=== PATIENT | female | born 1940 | race Caucasian/White ===

== ENCOUNTER → 2024-07-02 | Outpatient (CLI) | payer OTHER, SELFPAY ==
[2024-07-02 12:00] LABS: Collection Type, Urine Clean Catch
[2024-07-02 12:23] LABS: Basophils % (Auto) 1 % (0-2.5); Eosinophils # (Auto) 0.2 Thou/mm3 (0.0-0.5); Eosinophils % (Auto) 4 % (0-10); Hematocrit 40.4 % (36.0-46.0); Hemoglobin 13.2 g/dL (12.0-16.0); Immature Granulocytes % (Auto) 1 % (0-0); Immature Granulocytes Auto 0.03 Thou/mm3 (0.00-0.00); Lymphocytes # (Auto) 1.6 Thou/mm3 (1.0-4.8); Lymphocytes % (Auto) 26 % (10-50); Mean Corpuscular HGB Conc 32.7 g/dl (31.0-37.0); Mean Corpuscular Hemoglobin 31.4 pg (25.0-35.0); Mean Corpuscular Volume 96 fL (80-100); Monocytes # (Auto) 0.5 Thou/mm3 (0.0-0.8); Monocytes % (Auto) 7 % (0-12); Neutrophils % (Auto) 63 % (37-80); Nucleated Red Blood Cell % 0 /100 WBC (0); Platelet Count 202 Thou/mm3 (140-440); RDW Standard Deviation 45.7 fL (36.4-46.3); Red Blood Count 4.21 Miln/mm3 (4.00-5.20); White Blood Count 6.4 Thou/mm3 (3.6-11.0)
[2024-07-02 12:37] LABS: Glucose Estimated Average 103 mg/dL (80-131); Hemoglobin A1C 5.2 % Hgb (4.8-6.0)
[2024-07-02 12:41] LABS: Bacteria,Urine 4+; Bilirubin,Urine Negative (Negative); Blood,Urine Negative (Negative); Clarity,Urine Clear (Clear/Hazy); Color,Urine Lt-Yellow (Lt Yel-Yel); Glucose, Urine Negative (Negative); Ketones,Urine Negative (Negative); Leukocyte Esterase,Urine Positive (Negative); Nitrite,Urine Negative (Negative); PH,Urine 5.5 (5.0-7.0); Protein,Urine Negative (Neg - Trace); RBC,Urine 1 /hpf (0-3); Specific Gravity,Urine 1.017 (1.001-1.035); Squamous Epithelial Cell,Urine 1 /hpf (0-5); Urobilinogen,Urine Negative mg/dL (0.0-1.0); WBC,Urine 39 /hpf (0-5)
[2024-07-02 12:42] LABS: Culture Indicated,Urine Yes
[2024-07-02 12:47] LABS: Alanine Aminotransferase 12 U/L (10-49); Albumin, Serum 4.2 gm/dL (3.4-4.8); Albumin/Globulin Ratio 1.4 (1.2-2.2); Alkaline Phosphatase 88 U/L (46-116); Anion Gap 7 (7-16); Aspartate Amino Transferase 19 U/L (0-34); BUN/Creatinine Ratio 16 Ratio (12-20); Bilirubin,Total 0.8 mg/dL (0.3-1.2); Blood Urea Nitrogen 14 mg/dL (9-23); Calcium 9.9 mg/dL (8.3-10.6); Calcium (Corrected) 9.9 mg/dL (8.5-10.1); Carbon Dioxide 28.6 mMol/L (20.0-31.0); Cardiac Risk Estimate 5.3 RATIO (3.7-5.6); Chloride 105 mMol/L (98-107); Cholesterol 230 mg/dL (132-200); Creatinine (Component) 0.9 mg/dL (0.6-1.3); Free T4 (Free Thyroxine) 0.92 ng/dL (0.89-1.76); Globulin 3.1 gm/dL (2.3-3.5); Glucose 102 mg/dL (74-106); HDL Cholesterol 43 mg/dL (40-60); LDL Cholesterol,Calculated 150 mg/dL (0-130); Osmolality,Calculated 281 (275-295); Potassium 4.2 mMol/L (3.4-5.1); Sodium 141 mMol/L (136-145); Total Protein 7.3 gm/dL (5.7-8.2); Triglycerides 187 mg/dL (30-150); eGFR > 60 See Note
[2024-07-08 06:55] LABS: T3,Total* 107 ng/dL (76-181)
== END | disposition home or self-care (01) ==
LOC: COPL 11:03
PROVIDERS: PCP Family Medicine; Referring Provider Nurse Practitioner Family; Visit Provider Nurse Practitioner Family
DX: Z00.00 Encounter for general adult medical examination without abnormal findings (principal); E03.9 Hypothyroidism, unspecified
CPT/HCPCS: 36415; 80053; 80061; 81001; 83036; 84439; 84443; 84480; 85025; 87077; 87086; 87186

== ENCOUNTER → 2024-10-14 | Outpatient (CLI) | payer OTHER, SELFPAY ==
[2024-10-14 14:28] LABS: Basophils % (Auto) 1 % (0-2.5); Eosinophils # (Auto) 0.2 Thou/mm3 (0.0-0.5); Eosinophils % (Auto) 3 % (0-10); Hematocrit 39.8 % (36.0-46.0); Hemoglobin 13.3 g/dL (12.0-16.0); Immature Granulocytes % (Auto) 0 % (0-0); Immature Granulocytes Auto 0.02 Thou/mm3 (0.00-0.00); Lymphocytes # (Auto) 1.9 Thou/mm3 (1.0-4.8); Lymphocytes % (Auto) 33 % (10-50); Mean Corpuscular HGB Conc 33.4 g/dl (31.0-37.0); Mean Corpuscular Volume 96 fL (80-100); Monocytes # (Auto) 0.5 Thou/mm3 (0.0-0.8); Monocytes % (Auto) 9 % (0-12); Neutrophils # (Auto) 3.2 Thou/mm3 (1.8-7.7); Neutrophils % (Auto) 54 % (37-80); Nucleated Red Blood Cell % 0 /100 WBC (0); Platelet Count 177 Thou/mm3 (140-440); RDW Standard Deviation 48.1 fL (36.4-46.3); Red Blood Count 4.16 Miln/mm3 (4.00-5.20); White Blood Count 5.8 Thou/mm3 (3.6-11.0)
[2024-10-14 14:32] LABS: Glucose Estimated Average 103 mg/dL (80-131); Hemoglobin A1C 5.2 % Hgb (4.8-6.0)
[2024-10-14 14:44] LABS: Alanine Aminotransferase < 7 U/L (10-49); Albumin, Serum 4.2 gm/dL (3.4-4.8); Albumin/Globulin Ratio 1.4 (1.2-2.2); Alkaline Phosphatase 72 U/L (46-116); Anion Gap 4 (7-16); Aspartate Amino Transferase 17 U/L (0-34); BUN/Creatinine Ratio 8 Ratio (12-20); Bilirubin,Total 1.1 mg/dL (0.3-1.2); Blood Urea Nitrogen 10 mg/dL (9-23); Calcium 9.9 mg/dL (8.3-10.6); Calcium (Corrected) 9.9 mg/dL (8.5-10.1); Carbon Dioxide 28.1 mMol/L (20.0-31.0); Cardiac Risk Estimate 4.8 RATIO (3.7-5.6); Chloride 110 mMol/L (98-107); Cholesterol 179 mg/dL (132-200); Creatinine (Component) 1.2 mg/dL (0.6-1.3); Glucose 105 mg/dL (74-106); HDL Cholesterol 37 mg/dL (40-60); LDL Cholesterol,Calculated 115 mg/dL (0-130); Osmolality,Calculated 282 (275-295); Potassium 3.8 mMol/L (3.4-5.1); Sodium 142 mMol/L (136-145); Thyroid Stimulating Hormone 5.15 uIU/mL (0.55-4.78); Total Protein 7.2 gm/dL (5.7-8.2); Triglycerides 134 mg/dL (30-150); eGFR 45 See Note
[2024-10-14 17:12] LABS: Collection Type, Urine Clean Catch; RBC,Urine 0 /hpf (0-3)
[2024-10-14 17:55] LABS: Amorphous Crystals,Urine Present (Absent); Bacteria,Urine 3+; Bilirubin,Urine Negative (Negative); Blood,Urine Negative (Negative); Color,Urine Orange (Lt Yel-Yel); Glucose, Urine Negative (Negative); Ketones,Urine Negative (Negative); Leukocyte Esterase,Urine Positive (Negative); Nitrite,Urine Negative (Negative); PH,Urine 5.5 (5.0-7.0); Protein,Urine Trace (Neg - Trace); Specific Gravity,Urine 1.029 (1.001-1.035); Squamous Epithelial Cell,Urine 6 /hpf (0-5); WBC,Urine 13 /hpf (0-5)
[2024-10-14 18:04] LABS: Clarity,Urine Turbid (Clear/Hazy); Culture Indicated,Urine Yes
== END | disposition home or self-care (01) ==
LOC: COPL 13:35
PROVIDERS: PCP Physician Assistant; Referring Provider Physician Assistant; Visit Provider Physician Assistant
DX: R60.9 Edema, unspecified (principal)
CPT/HCPCS: 36415; 80053; 80061; 81001; 83036; 84443; 85025; 87077; 87086; 87186

== ENCOUNTER 2024-10-27 12:19 | Inpatient (IN) | payer OTHER, MEDICARE, SELFPAY ==
[2024-10-27] VITALS (8 sets, daily range): BP systolic 120–170; BP diastolic 57–87; PULSE 49–79; RESP 15–99; TEMP 36.2–36.9; O2SAT 90–99; BMI 32.5; BMI 31.6
--- NOTE | 2024-10-27 13:04 | XR_ITS ---
Examination: Abdomen AP single view Technique: AP portable supine abdomen, single view Exam date and time: October 27, 2024, 1311 hrs. Indications: Constipation weakness this week Findings: Moderately air distended colon. Significant air distended small bowel loops No free air Moderate narrowing hip joints Impression: Significant air distended small bowel loops, differential would include early small bowel obstruction
--- NOTE | 2024-10-27 13:04 | XR_ITS ---
Examination: PA lateral chest 2 views Technique: Upright PA lateral chest 2 views. Date and time: October 27, 2024, 1312 hrs. Comparison August 13, 2014. Indications: Hypoxia today Findings: Mild enlargement left ventricle. Mild vascular congestion. Mild opacity in the lingular segment obscuring detail left cardiac contour Moderate osteopenia Impression: Suspicious for early pneumonia lingular segment left upper lobe
--- NOTE | 2024-10-27 13:05 | PD.EDRME ---
Rapid Medical Screening Exam RME Arrival date/time: 10/27/24 12:19 This is an 83 year old female with complaints of poor appetite, constipation, weakness, and on assessment pt had low sats in triage. I have greeted and performed a focused initial assessment of this patient. Initial appropriate labs ordered at this time. A comprehensive ED assessment and evaluation of the patient and analysis of all test and completion of medical decision making process will be conducted by additional ED provider. Chief Complaint: Abdominal Pain Time Seen by Provider: 10/27/24 12:38 Vital signs: Vital Signs Temperature 97.5 F 10/27/24 12:50 Pulse Rate 75 10/27/24 12:50 Respiratory Rate 17 10/27/24 12:50 Blood Pressure 170/81 H 10/27/24 12:50 Pulse Oximetry (%) 90 L 10/27/24 12:50 Oxygen Delivery Method Room Air 10/27/24 12:50
--- NOTE | 2024-10-27 13:33 | EKG_ITS ---
[facility] Test Date: 2024-10-27 Pat Name: NICHOLE JUAN Department: Room: - Gender: Female Field Rep: : 1940 Requested By: Nabila Carroll Order Number: [id number] Reading MD: Nabila Carroll Measurements Intervals Debary Rate: 49 P: 33 SC: 275 QRS: -34 QRSD: 106 T: -7 QT: 467 QTc: 423 Interpretive Statements SINUS BRADYCARDIA WITH FIRST DEGREE AV BLOCK LEFT AXIS DEVIATION [QRS AXIS < -30] LOW QRS VOLTAGE IN PRECORDIAL LEADS [QRS DEFLECTION < 1.0 mV IN CHEST LEADS] MINIMAL VOLTAGE CRITERIA FOR LVH, CONSIDER NORMAL VARIANT [MEETS CRITERIA IN ONE OF: R(aVL), S(V1), R(V5), R(V5/V6)+S(V1)] POSSIBLE ANTERIOR MYOCARDIAL INFARCTION , PROBABLY OLD [30 ms Q WAVE IN V3/V4, OR R < 0.2 mV IN V4] Compared to ECG 09/18/2023 09:57:24 Left-axis deviation now present Low QRS voltage now present Myocardial infarct finding now present Left anterior fascicular block no longer present /store/S0/[id number]/ecg/[id number].pdf
[2024-10-27 14:02] LABS: Basophils # (Auto) 0.0 Thou/mm3 (0.0-0.2); Basophils % (Auto) 1 % (0-2.5); Eosinophils # (Auto) 0.0 Thou/mm3 (0.0-0.5); Eosinophils % (Auto) 1 % (0-10); Hematocrit 38.8 % (36.0-46.0); Hemoglobin 13.6 g/dL (12.0-16.0); Immature Granulocytes Auto 0.07 Thou/mm3 (0.00-0.00); Lymphocytes # (Auto) 1.7 Thou/mm3 (1.0-4.8); Lymphocytes % (Auto) 22 % (10-50); Mean Corpuscular HGB Conc 35.1 g/dl (31.0-37.0); Mean Corpuscular Hemoglobin 32.2 pg (25.0-35.0); Mean Corpuscular Volume 92 fL (80-100); Monocytes # (Auto) 0.7 Thou/mm3 (0.0-0.8); Monocytes % (Auto) 9 % (0-12); Neutrophils # (Auto) 5.3 Thou/mm3 (1.8-7.7); Neutrophils % (Auto) 67 % (37-80); Nucleated Red Blood Cell # 0.00 Thou/mm3 (0.00-0.00); Nucleated Red Blood Cell % 0 /100 WBC (0); Platelet Count 199 Thou/mm3 (140-440); RDW Standard Deviation 46.2 fL (36.4-46.3); Red Blood Count 4.23 Miln/mm3 (4.00-5.20); White Blood Count 7.9 Thou/mm3 (3.6-11.0)
--- NOTE | 2024-10-27 14:04 | XR_ITS ---
Examination: CT abdomen with intravenous contrast CT pelvis with intravenous contrast 2-D coronal reconstructions 2-D sagittal reconstructions Date and time of exam:25, 1533 hrs. Indications: Generalized abdominal pain and distention beginning 3 days ago.. CTDI: vol (mGy) 11.8. DLP: (mGycm) 258. Technique: Multiple axial sections of the abdomen and pelvis have been obtained. 64 slice high-resolution scanner used. 3 mm axial sections have been obtained, post intravenous injection 60 cc [id number]. 2-D sagittal, coronal reconstructions obtained. Low dose protocols were performed. One or more of the following dose reduction techniques were used; automated exposure control, adjustment of the mA and/or KV according to patient size, use of iterative reconstruction technique. Findings: Fatty infiltration throughout the liver. 15 mm liver cyst. Gallbladder not visualized No pancreatic mass. No hydronephrosis renal or ureteral calculi. Aorta normal size. Significantly fluid and air distended colon large amounts of air and stool in the rectum Multiple small bowel loops are fluid distended No pericecal inflammatory change No diverticulitis Urinary bladder contracted around a Clifton catheter. Prominent rectal wall thickening No pelvic mass Severe osteopenia Impression: Severe colonic ileus Fluid distended small bowel loops, differential would include early small bowel obstruction, consider Gastrografin small bowel series follow-up Prominent rectal wall thickening, differential would include proctitis, rectal cancer not excluded, recommend direct inspection
[2024-10-27 14:06] LABS: B-Type Natriuretic Peptide 23 pg/mL (0-100)
[2024-10-27 14:19] LABS: Alanine Aminotransferase < 7 U/L (10-49); Albumin, Serum 4.1 gm/dL (3.4-4.8); Albumin/Globulin Ratio 1.4 (1.2-2.2); Alkaline Phosphatase 66 U/L (46-116); Anion Gap 11 (7-16); Aspartate Amino Transferase 16 U/L (0-34); BUN/Creatinine Ratio 14 Ratio (12-20); Bilirubin,Total 1.3 mg/dL (0.3-1.2); Blood Urea Nitrogen 17 mg/dL (9-23); Calcium 9.7 mg/dL (8.3-10.6); Calcium (Corrected) 9.7 mg/dL (8.5-10.1); Carbon Dioxide 27.4 mMol/L (20.0-31.0); Chloride 100 mMol/L (98-107); Creatinine (Component) 1.2 mg/dL (0.6-1.3); Estimated Creatinine Clearance 35.0 mL/min (>60); Globulin 3.0 gm/dL (2.3-3.5); Glucose 117 mg/dL (74-106); Osmolality,Calculated 278 (275-295); Potassium 3.7 mMol/L (3.4-5.1); Sodium 138 mMol/L (136-145); Total Protein 7.1 gm/dL (5.7-8.2); eGFR 45 See Note
[2024-10-27 14:25] LABS: Lactate (Lactic Acid) 1.6 mMol/L (0.4-2.0)
[2024-10-27] MEDS: FUROSEMIDE INJ 10 MG/ML 4ML VIAL 40 MG IVP (15:10)
[2024-10-27 15:16] LABS: Collection Type, Urine Voided; RBC,Urine 0 /hpf (0-3)
[2024-10-27 15:21] LABS: Bacteria,Urine Rare; Bilirubin,Urine Negative (Negative); Blood,Urine Negative (Negative); Clarity,Urine Turbid (Clear/Hazy); Color,Urine Yellow (Lt Yel-Yel); Glucose, Urine Negative (Negative); Ketones,Urine Trace (Negative); Leukocyte Esterase,Urine Negative (Negative); Nitrite,Urine Positive (Negative); PH,Urine 6.0 (5.0-7.0); Protein,Urine Trace (Neg - Trace); Specific Gravity,Urine 1.030 (1.001-1.035); Squamous Epithelial Cell,Urine 5 /hpf (0-5); Urobilinogen,Urine 2.0 mg/dL (0.0-1.0); WBC,Urine 1 /hpf (0-5)
[2024-10-27 15:47] LABS: Culture Indicated,Urine Yes
--- NOTE | 2024-10-27 16:45 | PD.EDABDPN ---
ED Abdominal Pain RME/HPI General Chief Complaint: Abdominal Pain Stated complaint: VOMITING AND FEELS WEAK, HX OF BOWEL BLOCKAGE Time seen by provider: 10/27/24 12:38 Arrival date/time: 10/27/24 12:19 Limitations: no limitations RME / HPI RME / HPI narrative: 83-year-old female who is here to have multiple complaints. She states she has had some mild nausea and vomiting at home. Has no vomiting at this time. Denies any fevers or chills. She did have a bowel movement this morning. She has no urinary complaints. While the patient was being triaged, she was found to have saturations at 90%. She is not oxygen dependent at home. Has no history of COPD or asthma. She does endorse generalized weakness with shortness of breath. She has increased lower leg edema without history of CHF. Related Data Home Medications ?Medication ?Instructions ?Recorded ?Confirmed Restful Legs 1 tab PO QDAY 04/25/19 12/07/20 acetaminophen 325 mg tablet 325 mg PO Q6H PRN Pain 04/25/19 12/07/20 (Tylenol) levothyroxine 50 mcg tablet 50 mcg PO QDAY 04/25/19 12/07/20 estradiol 0.01% (0.1 mg/gram) 2 g vaginal DIRECTED 10/23/20 12/07/20 vaginal cream (Estrace) oxybutynin chloride 10 mg 10 mg PO QDAY 10/23/20 12/07/20 tablet,extended release 24 hr Allergies Allergy/AdvReac Type Severity Reaction Status Date / Time codeine Allergy Mild RASH/HIVES Verified 10/27/24 12:21 Sulfa (Sulfonamide Allergy Mild RASH/HIVES Verified 10/27/24 12:21 Antibiotics) prednisone Allergy Fainting Verified 10/27/24 12:21 Review of Systems Review of Systems Systems Reviewed: All systems reviewed, normal except as documented ED Exam General Limitations: Present no limitations General appearance: Present alert and in no apparent distress Head Head exam: Present atraumatic Eye Eye exam: Present normal appearance, PERRL and EOMI ENT ENT exam: Present normal exam, normal oropharynx and mucous membranes moist Neck Neck exam: Present normal inspection, full ROM and trachea midline Chest Chest inspection: Present normal inspection and symmetric chest wall rise Respiratory Respiratory exam: Present other (No respiratory distress or tachypnea. Mild crackles noted at the left base); Absent respiratory distress Cardiovascular Cardiovascular exam: Present regular rate, normal rhythm and normal heart sounds Abdominal Exam Abdominal exam: Present distention and tenderness; Absent guarding or rebound Extremities Exam Extremities exam: Present normal inspection and full ROM Back Exam Back exam: Present normal inspection and full ROM Neurological Exam Neurological exam: Present alert and oriented X3 Psychiatric Psychiatric exam: Present normal affect and normal mood Skin Skin exam: Present warm, dry, intact and normal color Course Quality Measures none Orders Category Date Time Status COVID-19 Screening Questionnaire NOW Care 10/27/24 16:[address] Screening NOW Care 10/27/24 14:04 Active Decision to Admit X1 Care 10/27/24 16:42 Active EKG (ED ONLY) *Do not use* NOW Care 10/27/24 13:[address] abdomen pelvis w con Stat Exams 10/27/24 14:04 Completed EKG (ED Only) Stat Exams 10/27/24 13:33 Draft KUB [XR abdomen 1V] Stat Exams 10/27/24 13:04 Completed XR chest 2V Stat Exams 10/27/24 13:04 Completed BNP [B-Type Natriuretic Peptide] Stat Lab 10/27/24 13:43 Completed CBC Stat Lab 10/27/24 13:43 Completed Comprehensive Metabolic Panel Stat Lab 10/27/24 13:43 Completed Lactic Acid [Lactate (Lactic Acid)] Stat Lab 10/27/24 14:15 Completed Urinalysis, C/S if Indicated Stat Lab 10/27/24 15:10 Completed Urine Culture Stat Lab 10/27/24 15:10 Received Furosemide Inj [Lasix Inj] Med 10/27/24 13:34 Discontinued 40 mg IVP X1 ONE cefTRIAXone [Rocephin] 2 gm Med 10/27/24 16:41 Active SODIUM CHLORIDE 0.9% (Popper) [Ns 0.9% (P)] 50 ml IV X1 Vital Signs Vital signs: Vital Signs Temperature 97.5 F 10/27/24 12:50 Pulse Rate 75 10/27/24 12:50 Respiratory Rate 17 10/27/24 12:50 Blood Pressure 170/81 H 10/27/24 12:50 Pulse Oximetry (%) 90 L 10/27/24 12:50 Oxygen Delivery Method Room Air 10/27/24 12:50 Abdominal Pain MDM MDM Narrative MDM Narrative:: 83-year-old female who is here to have multiple complaints. She states she has had some mild nausea and vomiting at home. Has no vomiting at this time. Denies any fevers or chills. She did have a bowel movement this morning. She has no urinary complaints. While the patient was being triaged, she was found to have saturations at 90%. She is not oxygen dependent at home. Has no history of COPD or asthma. She does endorse generalized weakness with shortness of breath. She has increased lower leg edema without history of CHF. On exam, patient has +4 pretibial edema. Dose of Lasix was provided. She had mild crackles in the left base. She has mild abdominal distention and mild abdominal tenderness. She has no guarding or rebound tenderness. Her CBC is unremarkable. Her metabolic panel is essentially unremarkable with a mildly elevated bilirubin at 1.3, glucose at 117, and a normal urinalysis. Radiology reports possible developing pneumonia in the left lung on chest x-ray. CT abdomen pelvis reveals severe ileus with fluid distended small loops of bowel. An order of ceftriaxone was requested. Dr. Malone with general surgery was consulted and will follow the patient. We will admit to medicine. Case discussed with attending ER physician. At approximately 1655, hospitalist was contacted for admission. Will place an NG tube. Patient data External records reviewed:: None Clinical information provided by:: patient and friend Social determinants that could affect healthcare access:: none Patient has the following chronic illnesses:: Hypothyroidism How is presenting disease/condition affected by chronic disease/condition?: uneffected by Evaluation data The following diagnostics were reviewed and interpreted by me:: lab results (No leukocytosis or anemia no metabolic derangement) and radiology exam(s) (Plain films of the chest reveal early, developing, pneumonia. CT abdomen pelvis reveals severe ileus versus possible SBO.) Lab and/or radiology exams considered but not ordered:: n/a Interpretation Summary: n/a Medications / Prescriptions Medications or Prescriptions considered but not ordered:: n/a Medication administrations:: Medication Administration History Ceftriaxone Sodium 2 gm/ (Sodium Chloride) 50 mls @ 100 mls/hr IV X1 ONE Stop: 10/27/24 17:10 Discontinued Medications Furosemide (Furosemide Inj 10 Mg/Ml 4ml Vial) 40 mg IVP X1 ONE Stop: 10/27/24 13:35 Last Admin: 10/27/24 15:10 Dose: 40 mg Documented By: TARAS See above Consultations Consultation(s) initiated? (list below): No Diagnosis Differential diagnosis abdominal pain: constipation, diverticulitis, gastroenteritis and small bowel obstruction Most likely diagnosis given after review of the tests above:: Early pneumonia, severe ileus Admission Indicated Admission indicated?: indicated Admission Request Was there a request for admission?: Yes Admission Attestation Admission request attestation: Discussed case with [] from Hospitalist service regarding admission. Discussed patients ED course, exam findings, labs, and radiology results. The Hospitalist [agrees,declines] to accept the patient for admission. Disposition Plan Disposition Plan: Admit Discharge Plan Plan Patient Disposition: Admit Acute Care w/in Hospital Patient condition on transfer: Stable Prescriptions/Referrals Prescriptions/Med Rec: No Action estradiol [Estrace] 0.01 % (0.1 mg/gram) cream 2 g vaginal DIRECTED Patient Comments: apply twice a week Rx Instructions: for 7 days oxybutynin chloride 10 mg tablet extended release 24hr 10 mg PO QDAY acetaminophen [Tylenol] 325 mg Tablet 325 mg PO Q6H PRN (Reason: Pain) levothyroxine 50 mcg Tablet 50 mcg PO QDAY Restful Legs tablet 1 tab PO QDAY Problem List Clinical Impression: Pneumonia, Hypoxia, Ileus Patient/Caregiver Discharge Instructions Print Language: Bulgarian Stand Alone Forms: Alda Award Info., Patient Portal Info Letter
[2024-10-27] MEDS: cefTRIAXone 2 GM in SODIUM CHLORIDE 0.9% (Popper) 50 ML IV (17:17)
[2024-10-27 17:37] LABS: Magnesium 1.9 mg/dL (1.6-2.6)
[2024-10-27] MEDS: HEPARIN SOD INJ 5000 UNIT/ML VIAL SC ×2 (17:58→21:33)
[2024-10-27] MEDS: AZITHROMYCIN INJ 500 MG in SODIUM CHLORIDE 0.9% 250 ML 250 ML 250 MG IV (18:00)
--- NOTE | 2024-10-27 18:05 | ECHO_ITS ---
Transthoracic Echo Report Ht (in): 62 Wt (lb): 178 Exam Location: Echo Lab Status: Inpatient Jr. Java Developer: Lucinda Workman Indications: Procedure Performed: BP: 116 / 59 HR: 62 MEASUREMENTS (Male / Female) Normal Values 2D ECHO LV Diastolic Diameter PLAX 3.4 cm 4.2 - 5.9 / 3.9 - 5.3 cm LV Systolic Diameter PLAX 2.5 cm IVS Diastolic Thickness 0.8 cm 0.6 - 1.0 / 0.6 - 0.9 cm LVPW Diastolic Thickness 0.9 cm 0.6 - 1.0 / 0.6 - 0.9 cm LV Relative Wall Thickness 0.5 LVOT Diameter 2.0 cm LA Volume Index 9.8 cm?/m? 16 - 28 cm?/m? M-MODE Aortic Root Diameter MM 2.2 cm LA Systolic Diameter MM 3.8 cm LA Ao Ratio MM 1.7 AV Cusp Separation MM 1.1 cm DOPPLER AV Peak Velocity 138.0 cm/s AV Peak Gradient 7.6 mmHg AV Mean Gradient 4.0 mmHg AV Velocity Time Integral 28.4 cm LVOT Peak Velocity 108.5 cm/s LVOT Peak Gradient 4.7 mmHg LVOT Velocity Time Integral 23.9 cm LVOT Cardiac Index 2434.2 cm?/min?m? AV Area Cont Eq vti 2.6 cm? AV Area Cont Eq pk 2.5 cm? MV Area PHT 2.2 cm? Mitral E Point Velocity 53.4 cm/s Mitral A Point Velocity 72.3 cm/s Mitral E to A Ratio 0.7 LV E' Lateral Velocity 5.8 cm/s Mitral E to LV E' Lateral Ratio 9.3 LV E' Septal Velocity 5.0 cm/s Mitral E to LV E' Septal Ratio 10.7 PV Peak Velocity 109.0 cm/s PV Peak Gradient 4.8 mmHg FINDINGS Left Ventricle Normal left ventricular size, wall thickness, systolic function with no obvious regional wall motion abnormalities. The ejection fraction is visually estimated at 55%. There is grade I diastolic dysfunction of the left ventricle (impaired relaxation pattern). Right Ventricle The right ventricle is normal in size and systolic function. Left Atrium The left atrium is normal by two-dimensional, color flow and Doppler imaging with no structural abnormalities, no thrombus formation present. Right Atrium The right atrium is normal by two-dimensional imaging, color flow and Doppler imaging with no structural abnormalities, no thrombus formation present. Atrial Septum The interatrial septum appears normal with no evidence of a shunt. Aorta The aorta is normal by two-dimensional, color flow and Doppler interrogation. Mitral Valve The mitral valve is normal by two-dimensional, color flow and Doppler interrogation. Trace mitral regurgitation. Aortic Valve Aortic valve sclerosis. Tricuspid Valve The tricuspid valve is normal by two-dimensional, color flow and Doppler interrogation. There is trace tricuspid valve regurgitation. Pulmonic Valve Mild pulmonic valve regurgitation. Vessels The pulmonary artery appears normal. The inferior vena cava pulmonary and hepatic veins appear normal. Pericardium The pericardium is normal by two-dimensional imaging. There is no significant pericardial effusion. CONCLUSIONS Indication: B/L lower ext swelling and SOB Normal LV size and function. Estimated EF 60 to 65%. No regional wall motion abnormalities. Grade 1 diastolic dysfunction. Normal RV size and function. Mild to moderate aortic valve sclerosis without stenosis. Mild MAC. Mild TR. Trace MR. Normal IVC size. No pericardial effusion. Jayesh Zaragoza (Electronically Signed) Final Date: 29 October 2024 19:41
--- NOTE | 2024-10-27 18:06 | PD.RESHP ---
Documentation for date of: 10/27/24 [facility] History of Present Illness Chief complaint: Abdominal pain, nausea, vomiting History of present illness: This patient is a 83-year-old female with past medical history of recurrent hx of chronic constipation, ?hypothyroidism presented to the ED on 10/27/2024 with chief complaint of abdominal pain, nausea, vomiting and decreased bowel movements. Patient reported that her abdominal pain started yesterday which was 5/10 diffuse crampy in nature. She had more than 3 episodes of vomiting. Vomitus consisted of food particles without blood. Denies any fever, chest pain, cough, shortness of breath, dysuria. She endorsed swelling in her both lower extremities. She had a bowel movement this morning and she always used laxative since she has been struggling with chronic constipation. Patient did not bring her medication list. Patient's ulwebbef-dh-wos was called and she stated that patient was taking Keflex for bedsore on right lower extremity back of her calf. In the ED, patient was hypertensive blood pressure 170/81, heart rate 75, respiratory 17. Saturating well on 2 L nasal cannula. Heart rate dropped to 58 bpm. Patient received ceftriaxone 2 g x 1 and Lasix 40 mg IV x 1. Labs showed white count 7.9, hemoglobin stable at 13.6. Platelet count 199. Chemistry panel showed sodium 138, potassium 3.7, chloride 100. Bicarb 27.4. BUN 17 and creatinine 1.2. GFR 45. Blood glucose 117. Lactic acid 1.6. T. bili 1.3. Magnesium 1.9. Urinalysis was turbid with trace proteins. Trace ketones. Rare bacteria. CT abdomen pelvis showed 15 mm liver cyst. Fluid and air distended colon large amount of stool and air in the rectum. Prominent rectal wall thickening. EKG showed sinus bradycardia with first-degree AV block. QTc 423. Chest x-ray suspicious for pneumonia left upper lobe. KUB showed significant air distended small bowel loops. Urine culture pending. PMH: As above PSH: Hysterectomy, cholecystectomy, appendectomy, cyst surgery, bladder tack, knee replacement Allergies: Codeine,sulfa causes hives and prednisone causes fainting SH: Denies smoking, drinking alcohol. No history of illicit drug use Home medications: Per patient's [id number] patient was taking senna, lactulose, MiraLAX, Lasix 20 mg, Keflex 500 mg 4 times daily for better Patient is admitted for further workup and management of small bowel obstruction and possible community-acquired pneumonia. Review of Systems Review of Systems Systems Reviewed: All systems reviewed, normal except as documented Exam Vital Signs Temp Pulse Resp BP Pulse Ox O2 Del Method O2 Flow Rate 97.1 F 52 L 15 143/71 H 96 Nasal Cannula 2 10/27/24 16:16 10/27/24 16:16 10/27/24 16:16 10/27/24 16:16 10/27/24 16:16 10/27/24 16:16 10/27/24 16:16 Narrative Exam GENERAL APPEARANCE: AxOx4, elderly female in no acute distress. Saturating well on 2 L NC. HEENT: NC, AT. MMM. EOMI, clear conjunctiva, oropharynx clear. NECK: Supple without lymphadenopathy. No stiffness or restricted ROM. HEART: Sinus bradycardia with regular rhythm, normal S1/S2, no m/r/g LUNGS: CTAB, moving air well. No crackles or wheezes are heard. ABDOMEN: Soft, tenderness on right upper quadrant and left upper quadrant with distended abdomen with good bowel sounds heard. BACK: No CVAT, no obvious deformity. EXTREMITIES: Bilateral 4+ pitting edema on both lower extremities up to knees. NEUROLOGICAL: Grossly nonfocal. Alert and oriented, moving all 4 extremities. CN not formally tested but appear grossly intact. Observed to ambulate with normal gait. Skin: Rt lower ext bedsore/wound on post part of calf Psych: Appropriate mood and affect Results: Labs 10/28/24 05:24 10/28/24 05:24 Labs: Short CBC 10/27/24 Range/Units 13:43 WBC 7.9 (3.6-11.0) Thou/mm3 Hgb 13.6 (12.0-16.0) g/dL Hct 38.8 (36.0-46.0) % Plt Count 199 (140-440) Thou/mm3 BMP 10/27/24 13:43 Sodium 138 Potassium 3.7 Chloride 100 Carbon Dioxide 27.4 BUN 17 Creatinine 1.2 Glucose 117 H Calcium 9.7 Liver Function 10/27/24 Range/Units 13:43 Total Bilirubin 1.3 H (0.3-1.2) mg/dL AST 16 (0-34) U/L ALT < 7 L (10-49) U/L Alkaline Phosphatase 66 (46-116) U/L Albumin 4.1 (3.4-4.8) gm/dL Urine 10/27/24 Range/Units 15:10 Urine Color Yellow (Lt Yel-Yel) Urine Clarity Turbid A (Clear/Hazy) Urine pH 6.0 (5.0-7.0) Ur Specific [place] 1.030 (1.001-1.035) Urine Protein Trace (Neg - Trace) Urine Glucose (UA) Negative (Negative) Quality Measures Quality Measures VTE prophylaxis (Heparin subcut) Advance care planning discussed with:: patient Medications Home Medications and Allergies Home Medications ?Medication ?Instructions ?Recorded ?Confirmed ?Type cephalexin 500 mg capsule 500 mg PO TID 10/27/24 10/27/24 History furosemide 20 mg tablet 20 mg PO QDAY 10/27/24 10/27/24 History lactulose 10 gram/15 mL oral 15 ml PO QDAY 10/27/24 10/27/24 History solution sennosides 8.6 mg tablet (senna) 17.2 mg PO QDAY 10/27/24 10/27/24 History Allergies Allergy/AdvReac Type Severity Reaction Status Date / Time codeine Allergy Mild RASH/HIVES Verified 10/27/24 12:21 Sulfa (Sulfonamide Allergy Mild RASH/HIVES Verified 10/27/24 12:21 Antibiotics) prednisone Allergy Fainting Verified 10/27/24 12:21 Visit Medications Acetaminophen (Acetaminophen 325 Mg Tablet) 650 mg PO Q6H PRN PRN Reason: Fever >101.5 Stop: 11/26/24 17:07 Acetaminophen (Acetaminophen 325 Mg Tablet) 650 mg PO Q6H PRN PRN Reason: PAIN SCALE 1-3 (mild Stop: 11/26/24 17:07 Heparin Sodium (Porcine) (Heparin Sod Inj 5000 Unit/Ml Vial) 5,000 unit SC Q8HR BONITA Stop: 11/10/24 17:14 Last Admin: 10/27/24 17:58 Dose: 5,000 unit Ceftriaxone Sodium 1,000 mg/ (Sodium Chloride) 50 mls @ 100 mls/hr IV QDAY BONITA Stop: 11/04/24 08:59 Azithromycin 500 mg/ Sodium (Chloride) 250 mls @ 250 mls/hr IV X1 ONE Stop: 10/27/24 18:12 Last Admin: 10/27/24 18:00 Dose: 250 mls/hr Azithromycin 250 mg/ Sodium (Chloride) 250 mls @ 250 mls/hr IV QDAY BONITA Stop: 11/02/24 17:12 Ondansetron HCl (Ondansetron Inj 2 Mg/Ml Inj 2 Ml) 4 mg IVP Q6H PRN; Protocol PRN Reason: NAUSEA OR VOMITING Stop: 11/26/24 17:07 Pantoprazole Sodium (Pantoprazole Inj 40 Mg Vial) 40 mg IVP QDAY BONITA Stop: 11/26/24 17:14 Last Admin: 10/27/24 17:58 Dose: 40 mg Discontinued Medications Furosemide (Furosemide Inj 10 Mg/Ml 4ml Vial) 40 mg IVP X1 ONE Stop: 10/27/24 13:35 Last Admin: 10/27/24 15:10 Dose: 40 mg Ceftriaxone Sodium 2 gm/ (Sodium Chloride) 50 mls @ 100 mls/hr IV X1 ONE Stop: 10/27/24 17:10 Last Infusion: 10/27/24 17:49 Dose: Infused Assessment & Plan Plan This patient is a 83-year-old female with past medical history of chronic constipation, hypothyroidism presented to the ED on 10/27/2024 with chief complaint of abdominal pain, nausea, vomiting and decreased bowel movements. Admitted for workup of SBO. #Small bowel obstruction #Likely related to multiple abdominal surgeries/adhesions versus chronic constipation - Patient presented with abdominal pain, nausea and vomiting x 1 day ago. History of chronic constipation on laxative therapy including MiraLAX, senna and lactulose -Lactic acid 1.6. T. bili 1.3. Magnesium 1.9. CT abdomen pelvis showed 15 mm liver cyst. Fluid and air distended colon large amount of stool and air in the rectum. Prominent rectal wall thickening. EKG showed sinus bradycardia with first-degree AV block. QTc 423. Chest x-ray suspicious for pneumonia left upper lobe. KUB showed significant air distended small bowel loops. Plan: -Insert NG tube with low intermittent suctioning - Surgeon, Dr. Tapia consulted for further recommendations - Likely perform Gastrografin series tomorrow - Zofran as needed for vomiting - Pain management as needed can give Dilaudid low-dose since patient is allergic to codeine in the past. Currently stable - Daily labs #Bilateral lower extremity swelling -Examination revealed 4+ pitting edema in both lower extremities. -Patient takes Lasix 20 mg every day. BNP 23 Plan: -No echo on file. Follow-up on echocardiogram #Possible community-acquired pneumonia ? Patient reported to have drop in SpO2. Chest x-ray showed pneumonia left upper lobe. Patient denied any cough or fever. -COVID and flu test pending Plan: -Started Rocephin and azithromycin - Follow on blood cultures - Oxygen as needed - Follow-up on echo #Bedsore/wound on right lower extremity posterior calf - Patient was taking Keflex 4 times daily for lower extremity calf wound per patient's [id number]-rj-wan Plan: -Wound care -Continue IV antibiotics - Follow-up with MRSA screen #Sinus bradycardia with possible first-degree block - EKG showed sinus bradycardia with first-degree AV block. QTc 423 Plan: -Telemonitoring - Med rec pending - Monitor vitals #Asymptomatic pyuria and bacteria -Patient denies any burning or dysuria. -Urinalysis was turbid with trace proteins. Trace ketones. Rare bacteria. Plan: -Continuing Rocephin 1 g once a day - Follow-up on urine culture #CKD stage IIIb ? BUN 17 and creatinine 1.2. GFR 45 - Patient denies any difficulty in urination. Only takes Tylenol as needed for pain. Plan: -Avoid nephrotoxic agents - Renally dose medications - Strict DARBY's - Electrolyte management as necessary - Follow-up on renal panel #Elevated T. bili #Liver cyst #Rectal wall thickening per CT findings - CT abdomen pelvis showed liver cyst and rectal wall thickening. - T. bili 1.3. LFTs unremarkable Plan: -Outpatient GI follow-up - Follow-up with liver ultrasound Health maintenance Diet: N.p.o. for now GI prophylaxis: Protonix 40 mg IV daily DVT prophylaxis: Heparin subcut every 8 hourly CODE STATUS: Full code Disposition: Admitted for further workup and management of SBO. Plan of care discussed with attending physician, Dr.Bishwakarma Dr. Mirna MD, PGY 3 Attending Provider Attestation/Addendum I attest that I was physically present for the evaluation, physical examination, lab and imaging review of the patient with the residents. I discussed the case with the residents and agree with the findings and plans of care as documented above. After examination of the patient and review of the clinical data I feel that this patient needs admission to the hospital for further treatment/evaluation. Patient is an 83 years old female with past medical history of recurrent chronic constipation, hypothyroidism who presented to the ED with complaint of abdominal pain, nausea, vomiting and decreased bowel movement. Her symptoms started yesterday, she had more than 3 episodes of vomiting. Denies any chest pain, fever, shortness of breath. She also has bilateral leg swelling. She uses laxative and has been dealing with constipation for a long time. Had undergone hysterectomy, cholecystectomy, appendectomy, cyst surgery, bladder tack. In the ED, abdomen/pelvic CT was done, which showed findings suggestive of small bowel obstruction. Chest x-ray was also done, which was suggestive of pneumonia on left upper lobe. We will admit the patient for management of small bowel obstruction, community-acquired pneumonia. We will start NG tube, once patient has resolution of nausea and vomiting, we will start Gastrografin study. Started on Rocephin and azithromycin for community-acquired pneumonia. Patient also noted to have bilateral pitting edema, we will start Lasix. And obtain echocardiogram. General surgery has been notified by ED. Also noted to have sinus bradycardia, we will monitor closely. Roxanna Goldberg MD
--- NOTE | 2024-10-27 18:48 | XR_ITS ---
Examination: Abdomen sonogram, Limited Date and time: October 27, 2024, 1927 hours INDICATIONS: Abdominal distention and pain 3 days Technique: Real-time puri scale transabdominal sonographic images of the upper abdomen obtained. Findings: Absent gallbladder. 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
[2024-10-27] MEDS: Magnesium Sulfate 2 GM Ivpb 2 GM/50 ML BAG IV (19:05)
--- NOTE | 2024-10-27 19:26 | XR_ITS ---
Examination: AP chest single view TECHNIQUE: AP portable sitting chest single view Date and time: October 27, 2024, 1930 hours INDICATIONS: Posterior orogastric tube placement FINDINGS: Orogastric tube in the stomach satisfactory position Minor prominence of ventricle No lumbar pneumonia IMPRESSION: Orogastric tube in the stomach satisfactory position.
[2024-10-28] VITALS (9 sets, daily range): BP systolic 102–147; BP diastolic 56–76; PULSE 50–74; RESP 16–95; TEMP 36.1–36.2; O2SAT 92–98
[2024-10-28] MEDS: HEPARIN SOD INJ 5000 UNIT/ML VIAL SC ×3 (05:05→22:08)
[2024-10-28 06:34] LABS: INR 1.0 (0.9-1.3); Partial Thromboplastin Time 30.7 Seconds (22.0-36.0); Prothrombin Time 11.3 Seconds (9.0-12.2)
[2024-10-28 06:38] LABS: Basophils # (Auto) 0.0 Thou/mm3 (0.0-0.2); Basophils % (Auto) 1 % (0-2.5); Eosinophils # (Auto) 0.1 Thou/mm3 (0.0-0.5); Eosinophils % (Auto) 2 % (0-10); Hematocrit 36.7 % (36.0-46.0); Hemoglobin 12.6 g/dL (12.0-16.0); Immature Granulocytes Auto 0.02 Thou/mm3 (0.00-0.00); Lymphocytes # (Auto) 2.4 Thou/mm3 (1.0-4.8); Lymphocytes % (Auto) 33 % (10-50); Mean Corpuscular HGB Conc 34.3 g/dl (31.0-37.0); Mean Corpuscular Hemoglobin 31.5 pg (25.0-35.0); Mean Corpuscular Volume 92 fL (80-100); Monocytes # (Auto) 0.7 Thou/mm3 (0.0-0.8); Monocytes % (Auto) 10 % (0-12); Neutrophils # (Auto) 4.0 Thou/mm3 (1.8-7.7); Neutrophils % (Auto) 55 % (37-80); Nucleated Red Blood Cell # 0.00 Thou/mm3 (0.00-0.00); Nucleated Red Blood Cell % 0 /100 WBC (0); Platelet Count 185 Thou/mm3 (140-440); RDW Standard Deviation 45.3 fL (36.4-46.3); Red Blood Count 4.00 Miln/mm3 (4.00-5.20); White Blood Count 7.2 Thou/mm3 (3.6-11.0)
[2024-10-28 07:01] LABS: Alanine Aminotransferase < 7 U/L (10-49); Albumin, Serum 3.5 gm/dL (3.4-4.8); Albumin/Globulin Ratio 1.3 (1.2-2.2); Alkaline Phosphatase 58 U/L (46-116); Anion Gap 11 (7-16); Aspartate Amino Transferase 16 U/L (0-34); BUN/Creatinine Ratio 14 Ratio (12-20); Bilirubin,Total 0.8 mg/dL (0.3-1.2); Blood Urea Nitrogen 15 mg/dL (9-23); Calcium 9.0 mg/dL (8.3-10.6); Calcium (Corrected) 9.4 mg/dL (8.5-10.1); Carbon Dioxide 31.1 mMol/L (20.0-31.0); Cardiac Risk Estimate 4.3 RATIO (3.7-5.6); Chloride 100 mMol/L (98-107); Cholesterol 129 mg/dL (132-200); Creatinine (Component) 1.1 mg/dL (0.6-1.3); Estimated Creatinine Clearance 37.5 mL/min (>60); Free T4 (Free Thyroxine) 0.87 ng/dL (0.89-1.76); Globulin 2.7 gm/dL (2.3-3.5); Glucose 90 mg/dL (74-106); HDL Cholesterol 30 mg/dL (40-60); LDL Cholesterol,Calculated 76 mg/dL (0-130); Magnesium 2.1 mg/dL (1.6-2.6); Osmolality,Calculated 283 (275-295); Phosphorous 2.4 mg/dL (2.4-5.1); Potassium 3.4 mMol/L (3.4-5.1); Sodium 142 mMol/L (136-145); Thyroid Stimulating Hormone 4.23 uIU/mL (0.55-4.78); Total Protein 6.2 gm/dL (5.7-8.2); Triglycerides 113 mg/dL (30-150); eGFR 50 See Note
[2024-10-28] MEDS: cefTRIAXone 1,000 MG in SODIUM CHLORIDE 0.9% (Popper) 50 ML 100 MG IV (09:30)
--- NOTE | 2024-10-28 10:39 | XR_ITS ---
Examination: Small bowel series AP abdomen 4 views Date and time: October 28, 2024 1047 hours INDICATIONS: Abdominal pain and distention this week TECHNIQUE AND FINDINGS: [employer] AP supine abdomen shows air distended small bowel loops Orogastric tube satisfactory position Patient received 120 cc Gastrografin with immediate 30 minute and 1.5 hour films Contrast in distended small bowel loops, however contrast present in the colon on the 1.5 hour film IMPRESSION: Negative for complete small bowel obstruction No further films are needed
--- NOTE | 2024-10-28 11:36 | PD.SURCONS ---
HPI Consult details History of present illness: 83F with chronic constipation who presented with abdominal pain, nausea/vomiting. Patient reports that she began having pain the day before presentation, diffuse and crampy, associated with nonbloody nonbilious vomiting. She reports having constipation for most of her life, started taking something prescription for it earlier this year but felt it has not helped much. Workup is indicative of ileus vs early SBO as well as CAP Pt had NG placed and has had scant output. She states she no longer has abdominal pain, has passed gas but has not had much of an appetite the past 2 weeks. Pt reports her last colonoscopy was years ago PMH: Chronic constipation PSH: Hysterectomy, cholecystectomy, appendectomy, knee replacement Meds: No antiplt or anticoagulation; pt reportedly takes senna, lactulose, miralax regularly Allergies: Codeine, sulfa, prednisone Review of Systems Review of Systems ROS Unobtainable: All systems reviewed & no additional complaints except as documented Meds Home Medications and Allergies Home Medications ?Medication ?Instructions ?Recorded ?Confirmed ?Type cephalexin 500 mg capsule 500 mg PO TID 10/27/24 10/27/24 History furosemide 20 mg tablet 20 mg PO QDAY 10/27/24 10/27/24 History lactulose 10 gram/15 mL oral 15 ml PO QDAY 10/27/24 10/27/24 History solution sennosides 8.6 mg tablet (senna) 17.2 mg PO QDAY 10/27/24 10/27/24 History Allergies Allergy/AdvReac Type Severity Reaction Status Date / Time codeine Allergy Mild RASH/HIVES Verified 10/27/24 12:21 Sulfa (Sulfonamide Allergy Mild RASH/HIVES Verified 10/27/24 12:21 Antibiotics) prednisone Allergy Fainting Verified 10/27/24 12:21 Exam Vital Signs Temp Pulse Resp BP Pulse Ox O2 Del Method O2 Flow Rate 97.0 F 61 16 102/56 L 92 L Room Air 2 10/28/24 07:20 10/28/24 07:20 10/28/24 07:20 10/28/24 07:20 10/28/24 07:20 10/28/24 07:20 10/27/24 20:29 Constitutional Constitutional: no acute distress Routine Respiratory Exam Respiratory: Present no resp distress Routine Abdominal Exam Abdominal: Present soft, tenderness (minimal tenderness diffusely) and surgical scars (well-healed scars); Absent distended, rebound or guarding Results Results: Laboratory Laboratory results: results reviewed Results: Imaging CT scan - abdomen: report reviewed and image reviewed Assessment & Plan Plan 83F with chronic constipation who presented with abdominal pain, nausea/vomiting, workup indicative of ileus vs early SBO. As pt feels better with no pain and has had scant NG output, more likely to be ileus than SBO. Would continue with small bowel series and remove NG when contrast is in colon F/u small bowel series, when contrast seen in colon removve NG and start CLD
[2024-10-28] MEDS: POTASSIUM CHL 10 mEq IVPB 10 MEQ/100 ML BAG 100 MEQ IV ×2 (11:50→13:03)
--- NOTE | 2024-10-28 17:16 | ESPR_ITS ---
<Statement entered by Minh Padilla MD - 10/28/24 18:08> Patient seen and examined at bedside, no acute overnight events. I discussed and supervised with the sourcing intern physician who took care of this patient. I personally saw and examined the patient. I agree with most of the assessment and plan. Patient doing well today, tolerating diet. Had 2 bowel movements following gastrograffin series, which showed resolution of SBO. NG tube discontinued. Pending echo, blood cultures. Anticipate discharge within next 24-48 hours. Plan of care discussed with attending Dr. Goldberg. Minh Padilla MD PGY-2 Documentation for date of: 10/28/24 Subjective Subjective Interval history: No acute events overnight Patient reports that she is passing gas Discontinued NG tube and completed Gastrografin small bowel series, patient has had 2 bowel movements today Exam Vital Signs Temp Pulse Resp BP Pulse Ox O2 Del Method O2 Flow Rate 97.1 F 62 19 116/59 L 92 L Room Air 2 10/28/24 12:00 10/28/24 12:00 10/28/24 12:00 10/28/24 12:10/28/24 12:10/28/24 12:00 10/27/24 20:29 24-hour vital signs reviewed patient is afebrile heart rate within normal limits BP within normal limits satting well on room air Narrative Exam GENERAL APPEARANCE: AxOx4, elderly female in no acute distress. Saturating well on room air. HEENT: NC, AT. MMM. EOMI, clear conjunctiva, oropharynx clear. NECK: Supple without lymphadenopathy. No stiffness or restricted ROM. HEART: Sinus bradycardia with regular rhythm, normal S1/S2, no m/r/g LUNGS: CTAB, moving air well. No crackles or wheezes are heard. ABDOMEN: Soft, tenderness on right upper quadrant and left upper quadrant with distended abdomen with good bowel sounds heard. BACK: No CVAT, no obvious deformity. EXTREMITIES: Bilateral 3+ pitting edema on both lower extremities up to knees. and tender to palpation NEUROLOGICAL: Grossly nonfocal. Alert and oriented, moving all 4 extremities. CN not formally tested but appear grossly intact. Skin: Rt lower ext bedsore/wound on post part of calf Psych: Appropriate mood and affect Objective Labs 10/29/24 05:16 10/29/24 05:16 Labs: Laboratory Results - last 24 hr 10/27/24 10/28/24 13:43 05:24 WBC 7.2 RBC 4.00 Hgb 12.6 Hct 36.7 MCV 92 MCH 31.5 MCHC 34.3 RDW Std Deviation 45.3 Plt Count 185 Neut % (Auto) 55 Lymph % (Auto) 33 [place] % (Auto) 10 Eos % (Auto) 2 Baso % (Auto) 1 Neut # (Auto) 4.0 Lymph # (Auto) 2.4 [place] # (Auto) 0.7 Eos # (Auto) 0.1 Baso # (Auto) 0.0 Immature Gran # (Auto) 0.02 H Absolute Nucleated RBC 0.00 Immature Gran % 0 Nucleated RBC % 0 PT 11.3 INR 1.0 APTT 30.7 Sodium 142 Potassium 3.4 Chloride 100 Carbon Dioxide 31.1 H Anion Gap 11 BUN 15 Creatinine 1.1 Estim Creat Clear Calc 37.5 L eGFR 50 L BUN/Creatinine Ratio 14 Glucose 90 Calculated Osmolality 283 Calcium 9.0 Corrected Calcium 9.4 Phosphorus 2.4 Magnesium 1.9 2.1 Total Bilirubin 0.8 D AST 16 ALT < 7 L Alkaline Phosphatase 58 Total Protein 6.2 Albumin 3.5 D Globulin 2.7 Albumin/Globulin Ratio 1.3 Triglycerides 113 Cholesterol 129 L LDL Cholesterol, Calc 76 HDL Cholesterol 30 L Cholesterol/HDL Ratio 4.3 TSH 4.23 Free T4 0.87 L Quality Measures Quality Measures VTE prophylaxis (Heparin subcut) Advance care planning discussed with:: patient Assessment & Plan Assessment Current Active Medications: Generic Name Dose Route Start Last Admin Trade Name Freq PRN Reason Stop Dose Admin Acetaminophen 650 mg 10/27/24 17:08 Acetaminophen 325 Mg Tablet PO 11/26/24 17:07 Q6H PRN Fever >101.5 Acetaminophen 650 mg 10/27/24 17:08 Acetaminophen 325 Mg Tablet PO 11/26/24 17:07 Q6H PRN PAIN SCALE 1-3 (mild Heparin Sodium (Porcine) 5,000 unit 10/27/24 17:15 10/28/24 13:03 Heparin Sod Inj 5000 Unit/Ml Vial SC 11/10/24 17:14 5,000 unit Q8HR BONITA Administration Azithromycin 250 mg/ Sodium 250 mls @ 250 mls/hr 10/28/24 21:00 Chloride IV 11/04/24 20:59 QDAY@2100 BONITA Ceftriaxone Sodium/Dextrose 1 gm in 50 mls @ 100 mls/hr 10/29/24 09:00 Rocephin/D5w 1gm Iv Premix IV 11/04/24 08:59 QDAY BONITA Ondansetron HCl 4 mg 10/27/24 17:08 Ondansetron Inj 2 Mg/Ml Inj 2 Ml IVP 11/26/24 17:07 Q6H PRN NAUSEA OR VOMITING Protocol Pantoprazole Sodium 40 mg 10/27/24 17:15 10/28/24 09:30 Pantoprazole Inj 40 Mg Vial IVP 11/26/24 17:14 40 mg QDAY BONITA Administration Plan This patient is a 83-year-old female with past medical history of chronic constipation, hypothyroidism presented to the ED on 10/27/2024 with chief complaint of abdominal pain, nausea, vomiting and decreased bowel movements. Admitted for workup of SBO, status post Gastrografin small bowel series, with resolution of small bowel obstruction, 2 bowel movements today, tolerating clear liquid diet advance as tolerated. #Small bowel obstruction #Likely related to multiple abdominal surgeries/adhesions versus chronic constipation - Patient presented with abdominal pain, nausea and vomiting x 1 day ago. History of chronic constipation on laxative therapy including MiraLAX, senna and lactulose -Lactic acid 1.6. T. bili 1.3. Magnesium 1.9. CT abdomen pelvis showed 15 mm liver cyst. Fluid and air distended colon large amount of stool and air in the rectum. Prominent rectal wall thickening. EKG showed sinus bradycardia with first-degree AV block. QTc 423. Chest x-ray suspicious for pneumonia left upper lobe. KUB showed significant air distended small bowel loops. Plan: - DC NG tube - Surgeon, Dr. Tapia consulted for further recommendations - Completed Gastrografin series 10/28, 2 bowel movements today - Clear liquid diet advance as tolerated - Zofran as needed for vomiting - Pain management as needed can give Dilaudid low-dose since patient is allergic to codeine in the past. Currently stable - Daily labs #Bilateral lower extremity swelling -Examination revealed 3+ pitting edema in both lower extremities. -Patient takes Lasix 20 mg every day. BNP 23 Plan: -No echo on file. Echo pending #Possible community-acquired pneumonia ? Patient reported to have drop in SpO2. Chest x-ray showed pneumonia left upper lobe. Patient denied any cough or fever. -COVID and flu test pending Plan: -Started Rocephin and azithromycin - Follow on blood cultures - Oxygen as needed - Follow-up on echo #Bedsore/wound on right lower extremity posterior calf - Patient was taking Keflex 4 times daily for lower extremity calf wound per patient's [id number] Plan: -Wound care consulted -Continue IV antibiotics - Follow-up with MRSA screen #Sinus bradycardia with possible first-degree block - EKG showed sinus bradycardia with first-degree AV block. QTc 423 Plan: -Telemonitoring - Med rec pending - Monitor vitals #Asymptomatic pyuria and bacteria -Patient denies any burning or dysuria. -Urinalysis was turbid with trace proteins. Trace ketones. Rare bacteria. Plan: -Continuing Rocephin 1 g once a day - Follow-up on urine culture #CKD stage IIIb ? BUN 17 and creatinine 1.2. GFR 45 - Patient denies any difficulty in urination. Currently with [place] in place . only takes Tylenol as needed for pain. Plan: -Avoid nephrotoxic agents - Renally dose medications - Strict DARBY's - Electrolyte management as necessary - Follow-up on renal panel #Elevated T. bili #Liver cyst #Rectal wall thickening per CT findings - CT abdomen pelvis showed liver cyst and rectal wall thickening. - T. bili 1.3. LFTs unremarkable Plan: -Outpatient GI follow-up - Follow-up with liver ultrasound Health maintenance Diet: Clear liquids advance as tolerated GI prophylaxis: Protonix 40 mg IV daily DVT prophylaxis: Heparin subcut every 8 hourly CODE STATUS: Full code Disposition: Completed Gastrografin small bowel series, 2 bowel movements. Tolerating p.o. Case discussed with my senior resident Dr. Padilla Case discussed with my attending Dr. Ashlyn Escobedo MD PGY-1 Attending Provider Attestation/Addendum I attest that I was physically present for the evaluation, physical examination, lab and imaging review of the patient with the residents. I discussed the case with the residents and agree with the findings and plans of care as documented above. Roxanna Goldberg MD
[2024-10-28] MEDS: AZITHROMYCIN INJ 250 MG in SODIUM CHLORIDE 0.9% 250 ML 250 ML IV (21:07)
[2024-10-29] VITALS (7 sets, daily range): BP systolic 113–133; BP diastolic 58–67; PULSE 52–73; RESP 16–96; TEMP 36.1–36.8; O2SAT 92–96
[2024-10-29 06:18] LABS: Basophils # (Auto) 0.0 Thou/mm3 (0.0-0.2); Basophils % (Auto) 1 % (0-2.5); Eosinophils # (Auto) 0.2 Thou/mm3 (0.0-0.5); Eosinophils % (Auto) 3 % (0-10); Hematocrit 38.7 % (36.0-46.0); Hemoglobin 13.3 g/dL (12.0-16.0); Immature Granulocytes Auto 0.04 Thou/mm3 (0.00-0.00); Lymphocytes # (Auto) 1.8 Thou/mm3 (1.0-4.8); Lymphocytes % (Auto) 29 % (10-50); Mean Corpuscular HGB Conc 34.4 g/dl (31.0-37.0); Mean Corpuscular Hemoglobin 31.7 pg (25.0-35.0); Mean Corpuscular Volume 92 fL (80-100); Monocytes # (Auto) 0.5 Thou/mm3 (0.0-0.8); Monocytes % (Auto) 8 % (0-12); Neutrophils # (Auto) 3.6 Thou/mm3 (1.8-7.7); Neutrophils % (Auto) 59 % (37-80); Nucleated Red Blood Cell # 0.00 Thou/mm3 (0.00-0.00); Nucleated Red Blood Cell % 0 /100 WBC (0); Platelet Count 178 Thou/mm3 (140-440); RDW Standard Deviation 45.8 fL (36.4-46.3); Red Blood Count 4.19 Miln/mm3 (4.00-5.20); White Blood Count 6.1 Thou/mm3 (3.6-11.0)
[2024-10-29] MEDS: HEPARIN SOD INJ 5000 UNIT/ML VIAL SC ×2 (06:26→13:46)
[2024-10-29 06:35] LABS: Alanine Aminotransferase < 7 U/L (10-49); Albumin, Serum 3.5 gm/dL (3.4-4.8); Albumin/Globulin Ratio 1.3 (1.2-2.2); Alkaline Phosphatase 61 U/L (46-116); Anion Gap 10 (7-16); Aspartate Amino Transferase 18 U/L (0-34); BUN/Creatinine Ratio 12 Ratio (12-20); Bilirubin,Total 0.7 mg/dL (0.3-1.2); Blood Urea Nitrogen 12 mg/dL (9-23); Calcium 9.1 mg/dL (8.3-10.6); Calcium (Corrected) 9.5 mg/dL (8.5-10.1); Carbon Dioxide 30.5 mMol/L (20.0-31.0); Chloride 101 mMol/L (98-107); Creatinine (Component) 1.0 mg/dL (0.6-1.3); Estimated Creatinine Clearance 41.3 mL/min (>60); Globulin 2.7 gm/dL (2.3-3.5); Glucose 96 mg/dL (74-106); Magnesium 2.0 mg/dL (1.6-2.6); Osmolality,Calculated 280 (275-295); Phosphorous 2.5 mg/dL (2.4-5.1); Potassium 3.5 mMol/L (3.4-5.1); Sodium 141 mMol/L (136-145); Total Protein 6.2 gm/dL (5.7-8.2); eGFR 56 See Note
[2024-10-29] MEDS: LEVOFLOXACIN 250 MG TABLET PO (09:29)
--- NOTE | 2024-10-29 10:49 | PC.SS ---
Patient Mary Cevallos is a 83 Year old female admitted for SBO and PNA. SS met with patient at bedside to discuss discharge plan and verify demographic information. Patient reports she lives at home with her Madai Cevallos who she reports is her surrogate decision maker [phone]. Choice of pharmacy is [facility]. Patient's PCP is [facility]. Patient is able to ambulate and does not utilize any source of DME to assist with ambulation, however reports she does have a Rollator walker. At time of discharge patient will return back home. family will provide transportation. Next of Kin: , Madai Cevallos Discharge plan: Home
--- NOTE | 2024-10-29 13:00 | PC.PT ---
PT eval only. Patient is I with transfers and ambulation with and without AD.
--- NOTE | 2024-10-29 15:13 | ESDS_ITS ---
<Statement entered by Minh Padilla MD - 10/30/24 16:44> Patient seen and examined at bedside, no acute overnight events. I discussed and supervised with the internet marketing intern physician who took care of this patient. I personally saw and examined the patient. I agree with most of the assessment and plan. Plan of care discussed with attending Dr. Ashlyn Padilla MD PGY-2 Planned Discharge Date 10/29/24 DS: Providers Provider Date of admission: 10/27/24 17:06 Primary care physician: James Grove MD Admitting Provider: Roxanna Goldberg MD Attending Provider on Admission: Roxanna Goldberg MD Consults: 10/27/24 17:14 Consult to General Surgery Routine Comment: Consulting Provider: Shannan Tapia 10/27/24 18:54 Referral Physical Therapy Routine Comment: Physician Instructions: 10/27/24 18:56 Referral Wound Care Routine Comment: Attending Provider on DC: Dr. Goldberg Discharging Provider: Alicia Escobedo, RESIDENT DS: Diagnosis Problem List Completed Was Problem List Reviewed/Reconciled?: Yes Hospital Course Hospital Course Hospital course: Hospital Course This patient is a 83-year-old female with past medical history of recurrent hx of chronic constipation, hypothyroidism presented to the ED on 10/27/2024 with chief complaint of abdominal pain, nausea, vomiting and decreased bowel movements, fth SBO, on imaging. general surgery was consulted, Dr. kumar. NG tube on low intermittent suction was placed to decompress her stomach, patient was kept n.p.o. She completed small bowel series with gastrogaffin with resolution of SBO. Subsequently she had 2 BM, ng tube removed, and pt able to tolerate diet. While inpatient, she was fth possible pneumonia and possible UTI and recieved CTX and azithromycin. Blood cultures ngtd @ 48 hrs. Her BLE edema was treated in patient with IV lasix 40 mg . Echo pending at time of discharge. Pt fth liver cyst on CTAP and elevated tbilli, plan to follow up with PCP after discharge. pt also found to have sinus bradycardia with possible first degree block, plan to follow up with pcp after discharge. Patient stable and medically cleared for discharge Diagnoses #SBO #BLE edema #Possible CAP #possible UTI #Bedsore/wound R posterior calf #SInus bradycardia with possible first degree block #CKD staage IIIb #Elevated tbilli #liver cyst Discharge instructions Take all medication as prescribed Take Levaquin 250 mg once a day for 3 days to complete antibiotic course for pseudomonal Urinary Tract Infection and Possible Pneumonia Continue taking lactulose and senna for chronic constipation Follow-up with your Primary Care Provider as outpatient within a week Please follow up on your echocardiogram and discuss with your Primary Care Physician You need workup for lower extremity swelling with your Primary Care Physician In case of emergency, call 911 and come back to the Emergency Department Case discussed with my senior resident Dr. Padilla Case discussed with my attending Dr. Ashlyn Escobedo MD PGY-1 Time Spent with Patient Time attestation: Total time spent providing and/or coordinating discharge services:33 min Time spent: Greater than 30 minutes Exam Vital Signs Temp Pulse Resp BP Pulse Ox O2 Del Method O2 Flow Rate 97.3 F 70 16 117/61 96 Room Air 2 10/29/24 11:20 10/29/24 12:00 10/29/24 11:20 10/29/24 11:20 10/29/24 11:20 10/29/24 11:20 10/28/24 16:00 Narrative Exam GENERAL APPEARANCE: AxOx4, elderly female in no acute distress. Saturating well on room air. HEENT: NC, AT. MMM. EOMI, clear conjunctiva, oropharynx clear. NECK: Supple without lymphadenopathy. No stiffness or restricted ROM. HEART: Sinus bradycardia with regular rhythm, normal S1/S2, no m/r/g LUNGS: CTAB, moving air well. No crackles or wheezes are heard. ABDOMEN: Soft, tenderness on right upper quadrant and left upper quadrant with distended abdomen with good bowel sounds heard. BACK: No CVAT, no obvious deformity. EXTREMITIES: Bilateral 3+ pitting edema on both lower extremities up to knees. and tender to palpation NEUROLOGICAL: Grossly nonfocal. Alert and oriented, moving all 4 extremities. CN not formally tested but appear grossly intact. Skin: Rt lower ext bedsore/wound on post part of calf Psych: Appropriate mood and affect Discharge Plan Plan Patient Disposition: HOME (Self Care) Patient condition on transfer: Stable Care Plan Goals: Take all medication as prescribed Take Levaquin 250 mg once a day for 3 days to complete antibiotic course for pseudomonal Urinary Tract Infection and Possible Pneumonia Continue taking lactulose and senna for chronic constipation Follow-up with your Primary Care Provider as outpatient within a week Please follow up on your echocardiogram and discuss with your Primary Care Physician You need workup for lower extremity swelling with your Primary Care Physician In case of emergency, call 911 and come back to the Emergency Department Prescriptions/Referrals Prescriptions/Med Rec: New levofloxacin 250 mg tablet 250 mg PO QDAY 3 Days Qty: 3 0RF Continued furosemide 20 mg tablet 20 mg PO QDAY Patient Comments: TAKE 1 TABLET BY MOUTH EVERY DAY sennosides [senna] 8.6 mg tablet 17.2 mg PO QDAY Patient Comments: TAKE 2 TABLETS BY MOUTH EVERY DAY AT BEDTIME NEEDED Changed lactulose 10 gram/15 mL solution 15 ml PO BID Qty: 473 0RF Patient Comments: TAKE 15 ML BY MOUTH ONCE DAILY NEEDED Discontinued cephalexin 500 mg capsule 500 mg PO TID Patient Comments: TAKE 1 TABLET BY MOUTH EVERY 8 HOURS Referrals: James Grove MD [Primary Care Provider] - Patient/Caregiver Discharge Instructions Education Materials: Preventing Pneumonia, Obstruction Intestinal, UITs Women Print Language: Spanish Stand Alone Forms: Alda Award Info., Patient Portal Info Letter Discharge Order Discharge Orders: Discharge (Routine); Ordered 10/29/24 Ordered By: Minh Padilla Quality Discharge Quality Measures VTE prophylaxis Attestestation Attestation I attest that I was physically present for the evaluation, physical examination, lab and imaging review of the patient with the residents. I discussed the case with the residents and agree with the findings and plans of care as documented above. Roxanna Goldberg MD
--- NOTE | 2024-10-29 15:39 | PC.SS ---
SS follow up note; Advancing diet, patient needs to tolerate before discharging. Patient will discharge home when medically cleared.
== END 2024-10-29 16:45 | disposition home or self-care (01) | DRG 388 ==
LOC: SERX 17:17 → SERHOLD 18:04 → S3SX 10-28 06:19
PROVIDERS: Nurse Practitioner Family; Physician Assistant Medical; Student in an Organized Health Care Education/Training Program; Admitting Provider Student in an Organized Health Care Education/Training Program; Emergency Provider Emergency Medicine; PCP Family Medicine; Visit Provider Student in an Organized Health Care Education/Training Program
DX: K56.609 Unspecified intestinal obstruction, unspecified as to partial versus complete obstruction (principal); J18.9 Pneumonia, unspecified organism; K76.89 Other specified diseases of liver; I44.0 Atrioventricular block, first degree; R00.1 Bradycardia, unspecified; R82.81 Pyuria; N18.32 Chronic kidney disease, stage 3b; Z96.659 Presence of unspecified artificial knee joint; Z90.710 Acquired absence of both cervix and uterus; E03.9 Hypothyroidism, unspecified; Z79.899 Other long term (current) drug therapy; Z88.5 Allergy status to narcotic agent; Z88.2 Allergy status to sulfonamides; L89.899 Pressure ulcer of other site, unspecified stage; K56.7 Ileus, unspecified
CPT/HCPCS: 36415; 71046; 74018; 74177; 74250; 76705; 80053; 80061; 81001; 83605; 83735; 83880; 84100; 84439; 84443; 85025; 85610; 85730; 87040; 87077; 87081; 87086; 87186; 87400; 87811; 93225; 93306; 96365; 96366; 96372; 96375; 97162; A4649; J0456; J0696; J1644; J1938; J2470; J3475; J3480; J7050; Q9963; Q9967; A9270

== ENCOUNTER → 2024-11-25 | Outpatient (CLI) | payer OTHER, SELFPAY ==
--- NOTE | 2024-11-25 10:00 | XR_ITS ---
Examination: Abdomen sonogram, complete Date and time of exam: November 25, 2024 1015 hours INDICATIONS: Diagnosis liver cystic disease. Technique: Multiple real-time grayscale transabdominal sonographic images of the abdomen have been obtained. Findings: Absent gallbladder Common bile duct 0.6 cm no stones Pancreatic head 2.4 cm Aorta not enlarged Liver 14.7 cm lobular contour fatty infiltration no cystic or solid masses Normal hepatopedal portal venous oh Patent IVC Right kidney 8.7 cm cortex 1.5 cm Left kidney 10.0 cm cortex 1.4 cm Mild renal parenchymal scar formation Spleen 11.1 cm IMPRESSION: No common bile duct stones Liver lobular contour no cystic or solid masses Atrophic right kidney
== END | disposition home or self-care (01) ==
PROVIDERS: Referring Provider Nurse Practitioner Family; Visit Provider Nurse Practitioner Family
DX: N26.1 Atrophy of kidney (terminal) (principal)
CPT/HCPCS: 76700

== ENCOUNTER → 2024-11-29 | Outpatient (CLI) | payer OTHER, SELFPAY ==
[2024-11-29 18:00] LABS: Alanine Aminotransferase < 7 U/L (10-49); Albumin, Serum 4.4 gm/dL (3.4-4.8); Albumin/Globulin Ratio 1.5 (1.2-2.2); Alkaline Phosphatase 84 U/L (46-116); Anion Gap 9 (7-16); Aspartate Amino Transferase 21 U/L (0-34); BUN/Creatinine Ratio 9 Ratio (12-20); Bilirubin,Total 1.0 mg/dL (0.3-1.2); Blood Urea Nitrogen 9 mg/dL (9-23); Calcium 10.2 mg/dL (8.3-10.6); Calcium (Corrected) 10.2 mg/dL (8.5-10.1); Carbon Dioxide 26.7 mMol/L (20.0-31.0); Chloride 105 mMol/L (98-107); Creatinine (Component) 1.0 mg/dL (0.6-1.3); Free T4 (Free Thyroxine) 0.96 ng/dL (0.89-1.76); Globulin 3.0 gm/dL (2.3-3.5); Glucose 102 mg/dL (74-106); Magnesium 2.0 mg/dL (1.6-2.6); Osmolality,Calculated 279 (275-295); Potassium 3.7 mMol/L (3.4-5.1); Sodium 141 mMol/L (136-145); Thyroid Stimulating Hormone 6.17 uIU/mL (0.55-4.78); Total Protein 7.4 gm/dL (5.7-8.2); eGFR 56 See Note
[2024-12-05 06:53] LABS: T3,Total* 116 ng/dL (76-181)
== END | disposition home or self-care (01) ==
LOC: COPL 12:48
PROVIDERS: PCP Nurse Practitioner Family; Referring Provider Nurse Practitioner Family; Visit Provider Nurse Practitioner Family
DX: R00.1 Bradycardia, unspecified (principal); N18.32 Chronic kidney disease, stage 3b; E03.9 Hypothyroidism, unspecified
CPT/HCPCS: 36415; 80053; 83735; 84439; 84443; 84480

== ENCOUNTER 2024-12-27 11:55 | Day surgery (SDC) | payer OTHER, SELFPAY ==
[2024-12-27] VITALS (11 sets, daily range): BP systolic 93–145; BP diastolic 51–72; PULSE 47–53; RESP 10–19; TEMP 36.3–36.5; O2SAT 95–100; BMI 29.0
[2024-12-27] MEDS: SODIUM CHLORIDE 0.9% 500 ML 500 ML 20 ML IV (13:18)
[2024-12-27] MEDS: MIDAZOLAM INJ 1 MG/ML VIAL 2 ML (ASD USE ONLY) 2 MG IVP (13:21)
[2024-12-27] MEDS: fentaNYL CIT INJ 50 mCg/ML AMP 2ML (ASD USE ONLY) IVP (13:21)
== END 2024-12-27 14:35 | disposition home or self-care (01) ==
PROVIDERS: PCP Family Medicine; Referring Provider Specialist; Visit Provider Specialist
PROC: 0DBE8ZX Excision of Large Intestine, Via Natural or Artificial Opening Endoscopic, Diagnostic (ICD-10-PCS; CPT 45380; principal; 2024-12-27 13:15)
DX: D12.5 Benign neoplasm of sigmoid colon (principal); K57.30 Diverticulosis of large intestine without perforation or abscess without bleeding; K64.9 Unspecified hemorrhoids
CPT/HCPCS: 45385; A4217; A4649; J1200; J2250; J3010; J7999

== ENCOUNTER → 2025-03-31 | Outpatient (BNVA) | payer OTHER, SELFPAY ==
--- NOTE | 2025-03-31 21:26 | ESPR_ITS ---
RE: NICHOLE JUAN : 1940 DATE OF SERVICE: 03/31/2025 CHIEF COMPLAINT: 1. Urinary incontinence status post placement of sling, recently had a bladder suspension operation done twice 1 done in 1988 another 1 done about 3 to 4 years ago. 2. Overactive bladder with frequency and nocturia. 3. Mixed urinary incontinence. HISTORY OF PRESENT ILLNESS: This is an 84-year-old female. She is 1, para 1, is status post hysterectomy. This patient had a placement of pubovaginal sling in 2019, which failed. The patient has mixed urinary incontinence. She has been using briefs. The patient has seen Dr. Hwang and I do not have his notes. He is urogynecologist from [facility]. The patient has no fever, chills, gross hematuria, dysuria, or urinary tract infection. She is 1, para 1 status post hysterectomy. The patient was tried on oxybutynin ER 10 mg p.o. daily. It did not help her and was started on Myrbetriq, which is not helping her. PAST MEDICAL HISTORY, FAMILY HISTORY, REVIEW OF SYSTEMS, PERSONAL HISTORY: Please refer to patient history form dated 03/31/2025. It is in HPI, in EMR. PHYSICAL EXAMINATION:General condition is satisfactory, orientation x3. HEENT: Normocephalic, atraumatic. Eyes: No anemia or jaundice. Neck: Supple, trachea central, thyroid is not enlarged. Extremities reveal no edema, cyanosis, or clubbing. Vital signs are stable, they are in HPI, in EMR. Chest symmetrical. Heart: Regular rate and rhythm. Abdomen: No masses. Liver, spleen, kidney not palpable, no CVA tenderness. VARIOUS LABS: BUN is 9, creatinine is 1.0, GFR is 56. This was done on 11/29/2024. Urinalysis is negative for any infection or microscopic hematuria. PLAN: 1. Estrace vaginal cream 2 g per vagina twice a week. She has no history of breast or uterine cancer. 2. Gemtesa 75 mg p.o. daily. 3. Reappointment with Dr. Hwang have been made and followup appointment with me in 4 months is given. DT: 16:10:26 TT: 21:24:00 Ref: [id number] - TID: [id number] MTDD
== END | disposition home or self-care (01) ==
PROVIDERS: PCP Family Medicine; Referring Provider Family Medicine; Visit Provider Urology
DX: N32.81 Overactive bladder (principal); N39.46 Mixed incontinence; Z90.710 Acquired absence of both cervix and uterus
CPT/HCPCS: 81003; 99212; G0463